=== PATIENT | female | born 1985 | race Caucasian/White ===

== ENCOUNTER → 2020-09-24 | Outpatient (CLI) | payer MEDICAID ==
--- NOTE | 2020-09-27 12:12 | MM ---
Reason for exam: clinical finding. Baseline mammogram. History: Took hormonal contraceptives for 7 years beginning at age 16. Physical Findings: Nurse did not find any significant physical abnormalities on exam. MG 3D Diag Mammo W/Cad MISSY Bilateral CC and MLO view(s) were taken. There are scattered fibroglandular densities. These results were verbally communicated with the patient and result sheet given to the patient on 09/24/20. ASSESSMENT: Incomplete: need additional imaging evaluation, BI-RAD 0 RECOMMENDATION: Ultrasound of the left breast. (site of focal pain)
--- NOTE | 2020-09-27 12:13 | USB ---
Reason for exam: additional evaluation requested from abnormal screening. History: Took hormonal contraceptives for 7 years beginning at age 16. US Breast Limited LT Left limited breast ultrasound including focal area of concern, retroareolar and axilla demonstrates no sonographic finding upper outer quadrant to 3 o'clock. These results were verbally communicated with the patient and result sheet given to the patient on 09/24/20. ASSESSMENT: Benign, BI-RAD 2 RECOMMENDATION: Follow-up diagnostic mammogram and ultrasound of the left breast in 6 months.
== END | disposition home or self-care (01) ==
LOC: RADMAMWWP 14:11
PROVIDERS: ATTEND Family Medicine
DX: N64.89 Other specified disorders of breast (principal)
CPT/HCPCS: 77062; 77066

== ENCOUNTER → 2021-04-18 | Outpatient (CLI) | payer MEDICAID ==
--- NOTE | 2021-04-18 14:42 | MM ---
Reason for exam: follow-up at short interval from prior study. Last mammogram was performed 7 months ago. History: Took hormonal contraceptives for 7 years beginning at age 16. Physical Findings: Nurse did not find any significant physical abnormalities on exam. MG 3D Diag Mammo W/Cad LT CC and MLO view(s) were taken of the left breast. Prior study comparison: September 24, 2020, bilateral MG 3d diag mammo w/cad MISYS. There are scattered fibroglandular densities. No significant changes when compared with prior studies. ASSESSMENT: Benign, BI-RAD 2 RECOMMENDATION: Routine screening mammogram of both breasts at age 39.
--- NOTE | 2021-04-18 14:43 | USB ---
Reason for exam: follow-up at short interval from prior study. History: Took hormonal contraceptives for 7 years beginning at age 16. US Breast LT Left complete breast ultrasound includes all four quadrants, the retroareolar region and axilla. Finding demonstrates no cystic or solid lesion seen. These results were verbally communicated with the patient and result sheet given to the patient on 04/18/21. ASSESSMENT: Negative, BI-RAD 1 RECOMMENDATION: Routine screening mammogram of both breasts at age 39.
== END | disposition home or self-care (01) ==
LOC: RADMAMWWP 13:42
PROVIDERS: ATTEND Family Medicine
DX: R92.8 Other abnormal and inconclusive findings on diagnostic imaging of breast (principal)
CPT/HCPCS: 77061; 77065

== ENCOUNTER 2022-03-21 17:53 | Emergency (ER) | payer MEDICAID ==
[2022-03-21 18:01] VITALS: BP 144/92; PULSE 112; RESP 20; TEMP 98.5
[2022-03-21] MEDS ORDERED: LIDOCAINE 1% INJ 10MG/ML (30 ML VIAL-PF) SQ ONE (18:11)
--- NOTE | 2022-03-21 18:37 | ED ---
Fall HPI - General Chief Complaint: Fall Stated Complaint: Fall-head injury Time Seen by Provider: 03/21/22 18:05 Source: patient, RN notes reviewed Mode of arrival: ambulatory - History of Present Illness Initial Comments: Patient is a pleasant 36 -year-old female presenting to the emergency room after a slip and fall in the bathroom earlier this evening resulted in her falling backwards into the corner of a wall creating a laceration to the posterior middle aspect of her scalp. She denies any loss of consciousness, dizziness, headache not directly related to the laceration, changes in vision, hearing changes, focal neurological deficits, nausea or vomiting. She reports that she controlled bleeding with the use of multiple towels with the wound quickly begins bleeding once towels are removed. Patient has past medical history significant for migraines but does not take any medication on a regular basis. - Related Data Allergies Allergy/AdvReac Type Severity Reaction Status Date / Time Penicillins Allergy Rash/Hives Verified 03/21/22 18:01 Review of Systems ROS Statement: Those systems with pertinent positive or pertinent negative responses have been documented in the HPI. ROS Other: All systems not noted in ROS Statement are negative. Past Medical History Additional Past Medical History / Comment(s): Migraine History of Any Multi-Drug Resistant Organisms: None Reported Past Surgical History: Adenoidectomy, Tonsillectomy, Tubal Ligation Past Psychological History: No Psychological Hx Reported Smoking Status: Never smoker Past Alcohol Use History: Occasional Past Drug Use History: None Reported General Exam Limitations: no limitations General appearance: alert, in no apparent distress Head exam: Present: normocephalic Expanded Head exam: Present: laceration (Mid posterior upper scalp 4 cm in length) Eye exam: Present: normal appearance, PERRL, EOMI. Absent: scleral icterus, conjunctival injection, periorbital swelling ENT exam: Present: normal exam, mucous membranes moist Neck exam: Present: normal inspection, full ROM Respiratory exam: Absent: respiratory distress, accessory muscle use Cardiovascular Exam: Present: regular rate GI/Abdominal exam: Absent: distended Extremities exam: Present: normal inspection. Absent: pedal edema, joint swelling Back exam: Present: normal inspection, full ROM Neurological exam: Present: alert, oriented X3, CN II-XII intact Psychiatric exam: Present: normal affect, normal mood Skin exam: Present: other (Scalp laceration as indicated above) Course Vital Signs 03/21/22 17:58 Temperature 98.5 F Pulse Rate 112 H Respiratory 20 Rate Blood Pressure 144/92 O2 Sat by Pulse 98 Oximetry Procedures - Laceration Laceration #1 Consent Obtained: verbal consent Indication: laceration Site: scalp (Mid posterior upper portion) Size (cm): 4 Description: linear Depth: simple, single layer Anesthetic Used: lidocaine 1% Anesthesia Technique: local infiltration Pre-repair: wound explored, irrigated extensively Type of Sutures: other (Lizeth) Number of Sutures: 10 Patient Tolerated Procedure: well, no complications Medical Decision Making - Medical Decision Making 36-year-old female presenting to the emergency room with laceration to the posterior scalp after hitting her head on the wall. No loss of consciousness, no concussive symptoms no obvious skull trauma and no blood thinner usage. No indication for diagnostic imaging or laboratory studies. Tetanus up-to-date. No indication for antibiotic therapy. She denies any analgesic need. Will plan for local anesthetic and laceration closure via lizeth. Patient tolerated stable closure of laceration well. Wound care discussed and advised need for staple removal in 10 days may return to work the emergency department or primary care provider as able. Discussed concussive symptoms and infection symptoms and when to seek medical attention. Will discharge home in stable condition with follow-up with her primary care provider. Case discussed with Dr. Dunbar Disposition Clinical Impression: Fall, Laceration Disposition: HOME SELF-CARE Condition: Stable Instructions (If sedation given, give patient instructions): Care For Your Stitches (ED), Laceration (ED) Additional Instructions: Please keep wound clean and dry. Monitor for signs and symptoms of infection and seek medical attention as appropriate if symptoms occur. Please follow-up with your primary care provider or return to the emergency room for staple removal in 10 days. Please return to the Emergency Department if symptoms worsen or any other concerns. Is patient prescribed a controlled substance at d/c from ED?: No Referrals: Claeb Lee III, MD [Primary Care Provider] - 1-2 days Time of Disposition: 18:37
== END 2022-03-21 18:43 | disposition home or self-care (01) ==
LOC: EC 17:53
DX: S01.01XA Laceration without foreign body of scalp, initial encounter (principal); Z88.0 Allergy status to penicillin; W01.0XXA Fall on same level from slipping, tripping and stumbling without subsequent striking against object, initial encounter
CPT/HCPCS: 99283; 12002; J2001